=== PATIENT | male | born 1960 | race Caucasian/White ===

== ENCOUNTER 2019-05-18 13:36 | Observation (INO) ==
[2019-05-18 15:13] LABS: Basophils % 0.2 % (0.0-0.8); Eosinophils % 0.3 % (0.00-10.9); Hematocrit 37.9 VOL% (42.0-52.0); Hemoglobin 12.3 GM/DL (14.0-18.0); Immature Granulocytes % 0.7 %; Immature Granulocytes Absolute 0.08 #; Lymphocytes # 0.9 10*3/uL (1.4-4.0); Lymphocytes % 7.5 % (21.2-54.2); Mean Corpuscular HGB Conc 32.5 GM/DL (32-36); Mean Corpuscular Volume 92.7 FL (87-102); Mean Platelet Volume 9.4 FL (9.6-12.0); Monocytes % 5.3 % (1.7-12.7); Platelet Count 571 T/CUMM (130-400); Red Blood Count 4.09 MC/CUMM (3.8-5.5); Red Cell Distribution Width 13.6 % (9.3-17.3); White Blood Count 11.7 T/CUMM (4-12)
[2019-05-18 15:23] LABS: PT Patient Result 10.6 SECS (9.6-12.2); Partial Thromboplastin Time 22.4 SECS (20.8-36.0)
[2019-05-18 15:30] LABS: Albumin 3.9 G/DL (3.4-5.0); Bilirubin,Total 0.5 MG/DL (0.2-1.0); Calcium 9.8 MG/DL (8.5-10.1); Osmolality,Calculated 273.7 MOS/KG (273-304); Total Protein 6.9 G/DL (6.4-8.3)
[2019-05-18] MEDS ORDERED: DEXTROSE 50% 25 GM/50 ML VIAL IV STA (15:38)
[2019-05-18] MEDS ORDERED: ASPIRIN 325 MG TABLET PO STA (15:42)
[2019-05-18 16:05] LABS: Apearance,Urine CLEAR (Clear); Bilirubin,Urine Negative (Negative); Blood, Urine Negative (Negative); Glucose,Urine (UA) Negative (Negative); Ketones,Urine 20 mg/dL (Negative); Mucus,Urine Moderate /LPF (Occasional); Nitrite,Urine Negative (Negative); Protein,Urine Negative; RBC,Urine <1 /HPF (0-4); Urine Color Yellow (Yellow); Urine Specific Gravity 1.012 (1.001-1.035); Urine Urobilinogen < 2.0 EU/DL (0.2-1.0); WBC,Urine <1 /HPF (0-6)
[2019-05-18] MEDS ORDERED: DEXTROSE 50% 25 GM/50 ML SYRINGE IV ONE (16:06)
[2019-05-18 16:09] LABS: Barbiturates Screen,Urine Negative (Negative); Benzodiazepines Screen,Urine Negative (Negative); Cannabinoid Screen,Urine Negative (Negative); Opiate Screen,Urine Negative (Negative); Phencyclidine Screen,Urine Negative (Negative)
[2019-05-18] MEDS ORDERED: BUDESONIDE/FORMOTEROL 160-4.5 INHALER 6 GM INH PRN (16:15)
[2019-05-18] MEDS ORDERED: ALBUTEROL/IPRATROPIUM 3 ML NEB RESP TX PRN (16:17)
[2019-05-18] MEDS ORDERED: DEXTROSE 50% 25 GM/50 ML VIAL IV PRN (16:32)
[2019-05-18] MEDS ORDERED: GLUCAGON 1 MG VIAL IM PRN (16:32)
[2019-05-18] MEDS ORDERED: IBUPROFEN 800 MG TABLET PO PRN (20:47)
[2019-05-19 04:23] LABS: Basophils % 0.3 % (0.0-0.8); Eosinophils # 0.1 10*3/uL (0.0-0.87); Eosinophils % 1.4 % (0.00-10.9); Hematocrit 41.3 VOL% (42.0-52.0); Hemoglobin 13.1 GM/DL (14.0-18.0); Immature Granulocytes % 1.2 %; Immature Granulocytes Absolute 0.11 #; Lymphocytes # 1.7 10*3/uL (1.4-4.0); Lymphocytes % 17.6 % (21.2-54.2); Mean Corpuscular HGB Conc 31.7 GM/DL (32-36); Mean Platelet Volume 9.4 FL (9.6-12.0); Monocytes % 8.5 % (1.7-12.7); Platelet Count 589 T/CUMM (130-400); Red Blood Count 4.44 MC/CUMM (3.8-5.5); Red Cell Distribution Width 13.6 % (9.3-17.3); White Blood Count 9.5 T/CUMM (4-12)
[2019-05-19 04:48] LABS: Albumin 3.7 G/DL (3.4-5.0); Bilirubin,Total 0.5 MG/DL (0.2-1.0); Calcium 9.5 MG/DL (8.5-10.1); Free T4 (Free Thyroxine) 1.25 NG/DL (0.76-1.46); Osmolality,Calculated 283.4 MOS/KG (273-304); Risk Ratio 2.44; Total Protein 7.3 G/DL (6.4-8.3); VLDL CHOLESTEROL 16.6 MG/DL
[2019-05-19] MEDS ORDERED: LORazepam 2 MG/1 ML VIAL IV ONE (07:24)
[2019-05-19] MEDS ORDERED: OMEGA 3 ACID ETHYL ESTERS 1 GM CAPSULE PO SCH (09:00)
[2019-05-19] MEDS ORDERED: METHADONE PO ONE (09:00)
[2019-05-19 12:26] VITALS: BP 103/72
[2019-05-19] MEDS ORDERED: hydroCHLOROthiazide 12.5 MG CAPSULE PO SCH (16:00)
[2019-05-19] MEDS ORDERED: CETIRIZINE 10 MG TABLET PO SCH (16:00)
[2019-05-19] MEDS ORDERED: amLODIPine 5 MG TABLET PO SCH (16:00)
[2019-05-19] MEDS ORDERED: LISINOPRIL 20 MG TABLET PO SCH (16:00)
[2019-05-19] MEDS ORDERED: MONTELUKAST 10 MG TABLET PO SCH (16:00)
[2019-05-19] MEDS ORDERED: ATORVASTATIN 80 MG TABLET PO SCH (21:00)
== END 2019-05-19 15:45 | disposition home health service (06) ==
LOC: N.ED 13:36 → N.EDINP 13:36 → SUATTDRO 16:13 → N.EDINP 18:23 → N.2W 18:41
PROVIDERS: ADMIT Internal Medicine; ATTEND Internal Medicine